=== PATIENT | male | born 1950 | race Caucasian/White ===

== ENCOUNTER 2020-02-10 11:16 | Emergency (ER) | payer MEDICARE, OTHER ==
--- NOTE | 2020-02-10 11:42 | EDM.PDOC ---
ED HPI GENERAL MEDICAL PROBLEM - General Chief Complaint: Genitourinary Problem Stated Complaint: dysuria Time Seen by Provider: 02/10/20 11:30 Source of Information: Reports: Patient History Limitations: Reports: No Limitations - History of Present Illness INITIAL COMMENTS - FREE TEXT/NARRATIVE: Patient presents to ER with complaints of malaise, burning with urination. Noted hematuria this am. States 2 nights ago, started having generalized body aches. Was nauseated, threw up 3 times. Since then, that has improved but he hasn't had much of an appetite. Did have intermittent chills, questions had fever. Urine has been dark and cloudy since. He denies cough, chest discomfort , shortness of breath. No abdominal pain. No diarrhea or constipation. Relates does have a history of UTI but was many years ago. Onset: Gradual Duration: Day(s): Location: Reports: Abdomen Quality: Reports: Ache Severity: Mild Improves with: Reports: Rest Associated Symptoms: Reports: Fever/Chills, Loss of Appetite, Malaise, Weakness. Denies: Confusion, Cough, Headaches, Nausea/Vomiting, Shortness of Breath Treatments [employer]: Reports: Acetaminophen - Related Data Allergies Allergy/AdvReac Type Severity Reaction Status Date / Time No Known Allergies Allergy Verified 02/10/20 11:28 Home Meds: Home Meds Aspirin 325 mg PO DAILY 08/03/13 [History] Insulin Aspart [NovoLOG] 10 - 20 units SQ TID 08/03/13 [History] Insulin Glarg,Human.Rec.Analog [Lantus] 45 units SQ DAILY 08/03/13 [History] Pioglitazone [Actos] 15 mg PO DAILY 08/03/13 [History] Sildenafil [Viagra] 100 mg PO ASDIRECTED PRN 08/03/13 [History] metFORMIN [Glucophage] 850 mg PO TIDM 08/03/13 [History] Lisinopril 2.5 mg PO DAILY 08/21/13 [History] Simvastatin [Zocor] 40 mg PO BEDTIME 08/21/13 [History] Past Medical History Cardiovascular History: Reports: High Cholesterol, Hypertension Endocrine/Metabolic History: Reports: Diabetes, Type II Social & Family History - Tobacco Use Smoking Status *Q: Unknown Ever Smoked ED ROS GENERAL - Review of Systems Review Of Systems: See Below Constitutional: Reports: Fever, Chills, Malaise, Weakness, Fatigue, Decreased Appetite HEENT: Reports: No Symptoms Respiratory: Denies: Shortness of Breath, Cough Cardiovascular: Denies: Chest Pain, Edema, Lightheadedness Endocrine: Reports: Fatigue GI/Abdominal: Reports: Decreased Appetite. Denies: Abdominal Pain, Constipation , Diarrhea, Nausea, Vomiting : Reports: Dysuria, Hematuria. Denies: Flank Pain Musculoskeletal: Reports: No Symptoms Skin: Reports: No Symptoms Neurological: Reports: No Symptoms ED EXAM, RENAL/ - Physical Exam Exam: See Below Exam Limited By: No Limitations General Appearance: Alert, WD/WN, No Apparent Distress Ears: Normal External Exam, Normal TMs Nose: Normal Inspection, Normal Mucosa, No Blood Throat/Mouth: Normal Inspection, Normal Oropharynx Head: Normocephalic Neck: Normal Inspection, Supple, Non-Tender Respiratory/Chest: No Respiratory Distress, Lungs Clear, Normal Breath Sounds Cardiovascular: Regular Rate, Rhythm GI/Abdominal: Normal Bowel Sounds, Soft, Non-Tender Back Exam: No: CVA Tenderness (L), CVA Tenderness (R) Extremities: Normal Inspection, No Pedal Edema Neurological: Alert, Oriented Skin Exam: Warm, Dry Course - Vital Signs Last Recorded V/S: Last Vital Signs Temp 98.3 F 02/10/20 11:20 Pulse 100 02/10/20 11:20 Resp 16 02/10/20 11:20 BP 142/79 H 02/10/20 11:20 Pulse Ox 96 02/10/20 11:20 - Orders/Labs/Meds Orders: Active Orders 24 hr Category Date Time Status CULTURE URINE [RM] Routine Lab 02/10/20 11:34 Received UA W/MICROSCOPIC [URIN] Routine Lab 02/10/20 11:34 Results Labs: Laboratory Tests 02/10/20 Range/Units 11:34 Urine Color Dark yellow H (YELLOW) Urine Appearance Cloudy H (CLEAR) Urine pH 5.5 (5.0-8.0) Ur Specific M[place] 1.025 Urine Protein 100 H (NEGATIVE) mg/dL Urine Glucose (UA) Negative (NEGATIVE) mg/dL Urine Ketones 15 H (NEGATIVE) mg/dL Urine Occult Blood Large H (NEGATIVE) Urine Nitrite Positive H (NEGATIVE) Urine Bilirubin Small H (NEGATIVE) Urine Urobilinogen 1.0 (0.2) EU/dL Ur Leukocyte Esterase Moderate H (NEGATIVE) Meds: Medications Discontinued Medications Generic Name Dose Route Start Last Admin Trade Name Dyllan PRN Reason Stop Dose Admin Ceftriaxone Sodium 1 gm 02/10/20 11:47 Rocephin IM 02/10/20 11:48 ONETIME ONE - Re-Assessments/Exams Free Text/Narrative Re-Assessment/Exam: 02/10/20 11:48 UA positive Departure - Departure Time of Disposition: 11:48 Disposition: Home, Self-Care 01 Condition: Good Clinical Impression: UTI, Urinary tract infectious disease - Discharge Information *PRESCRIPTION DRUG MONITORING PROGRAM REVIEWED*: No *COPY OF PRESCRIPTION DRUG MONITORING REPORT IN PATIENT PHILLY: No Instructions: Urinary Tract Infection, Adult, [id number] Forms: ED Department Discharge Additional Instructions: 1. Push fluids 2. Tylenol or ibuprofen for fever or discomfort 3. Cipro 500 mg twice a day for 7 days, start tonight 4. [facility] if any persisting concerns. Sepsis Event Note (ED) - Evaluation Sepsis Screening Result: No Definite Risk - Focused Exam Vital Signs: Vital Signs Temp Pulse Resp BP Pulse Ox 02/10/20 11:20 98.3 F 100 16 142/79 H 96 - My Orders Last 24 Hours: My Active Orders 02/10/20 11:34 CULTURE URINE [RM] Routine UA W/MICROSCOPIC [URIN] Routine - Assessment/Plan Last 24 Hours: My Active Orders 02/10/20 11:34 CULTURE URINE [RM] Routine UA W/MICROSCOPIC [URIN] Routine
[2020-02-10] MEDS ORDERED: cefTRIAXone 1 GM Vial IM ONE (11:47)
== END 2020-02-10 12:29 | disposition home or self-care (01) ==
LOC: VM.ED 11:16
DX: N39.0 Urinary tract infection, site not specified (principal); E78.00 Pure hypercholesterolemia, unspecified; I10 Essential (primary) hypertension; E11.9 Type 2 diabetes mellitus without complications; Z79.82 Long term (current) use of aspirin; Z79.4 Long term (current) use of insulin; Z79.899 Other long term (current) drug therapy
CPT/HCPCS: 81001; 87086; 87088; 87186; 96372; 99283; J0696; J2001

== ENCOUNTER 2022-10-21 17:50 | Emergency (ER) | payer MEDICARE | END 2022-10-21 19:35 | disposition home or self-care (01) | LOC: VM.ED 17:50 | DX: U07.1 COVID-19 (principal); E78.00 Pure hypercholesterolemia, unspecified; I10 Essential (primary) hypertension; E11.9 Type 2 diabetes mellitus without complications; Z79.82 Long term (current) use of aspirin; Z79.4 Long term (current) use of insulin; Z79.899 Other long term (current) drug therapy | CPT/HCPCS: 36415; 71046; 80053; 84484; 85025; 93005; 93010; 99284 ==